=== PATIENT | female | born 1930 | race Caucasian/White ===

== ENCOUNTER 2016-04-04 13:58 | Emergency (ER) | payer OTHER ==
[~2016-04-04] VITALS: Ht 162.6 cm; Wt 40.0 kg
[~2016-04-04 13:58] MED LIST: ADVAIR 500/501 DISK IH; ALBUT IH; ALTACE10 MG PO; AMLODIPINE BESY10 MG PO; ARANESP100 MCG/0. IV/SC; ASCORBIC ACID500 M3 PO; ASCORBIC ACID500 MG PO; ASPIR-LOW81 MG PO; ASPIRIN E.C.81 M1 PO; ATIVAN0.5 MG PO; ATORVASTATIN CA20 MG PO; ATROVENT H200 INHALA IH; AZATHIOPRINE50 MG PO; Antivert PO; Aranesp; Ascorbic Acid,Ester- PO; Aspirin E.C. PO; Atrovent HFA Inhaler IH; BACTRIM,SEPT1 TABLE1 PO; BACTROBAN NASAL1 G1 BOTH NARES; BYSTOLIC5 MG PO; Bactrim,Septra Singl PO; CALCITRIOL0.25 MCG PO; CALCIUM 600 +1 EAC5 PO; CARDIZEM CD,CA120 MG PO; CARDIZEM120 MG PO; CEFUROXIME500 MG PO; COLACE100 MG PO; COUMADIN2.5 MG PO; COUMADIN3 MG PO; CYCLOPHOSPHAMID50 MG PO; CYTOXAN PO; CYTOXAN25 MG PO; Cardizem CD,Cartia X PO; Ceftin PO; Cepacol Lozenge, Sor MM; Combivent IH; Coumadin Protocol PO; DELTASONE20 MG; DELTASONE20 MG PO; DIGOXIN125 MCG PO; DRISDOL50000 UNIT PO; DULCOLAX5 MG PO; DUONEB3 ML IH; Dextrose 10% in Wate IV; Dextrose 50% in Wate IV; ELIQUIS2.5 MG PO; FLONASE16 GM BOTH NARES; Flonase BOTH NARES; GENTEAL MODERAT25 ML BOTH EYES; GLIPIZIDE5 MG PO; GLUCAGEN IM/SC; GLUCAGEN1 MG IM/SC; GLUCOTROL XL10 MG PO; GLUCOTROL XL5 MG PO; Glucophage XR,Fortam PO; Glucotrol PO; HYOSCYAMINE0.125 MG PO; IMDUR30 MG PO; IMURAN50 MG PO; Imuran PO; Januvia PO; K-DUR20 MEQ PO; KEFLEX500 MG PO; KLOR-CON20 MEQ PO; LANTUS 10100 UNITS/ SC; LANTUS100 UNIT/1 SQ; LASIX20 MG PO; LASIX40 MG PO; LEVAQUIN250 MG PO; LEVAQUIN750 MG PO; LIPITOR20 MG PO; LOPRESSOR50 MG PO; LOVENOX30 MG/0.3 SC; MAG DELAY64 M1 PO; MECLIZINE HCL25 MG PO; METOPROLOL TART50 MG PO; MULTI-DAY VITA1 EACH PO; NEXIUM40 MG PO; NORVASC10 MG PO; NOVOLOG PE100 UNITS/ SC; NOVOLOG100 UNIT/2 SQ; NovoLOG Pen 3 ml SC; OS-CAL 500+D T1 EAC1 PO; OSCAL, OYSTER500 MG PO; Oscal 500 w/Vitamin PO; POTASSIUM CHLO10 ME3 PO; PRAVACHOL80 MG PO; PREDNISONE10 MG PO; PRILOSEC20 MG PO; PROCRIT; PROVENTIL,200 INHALA IH; Protonix PO; Proventil,Ventolin H IH; REFRESH TEARS15 ML BOTH EYES; RESTASIS 01 DROP/0.4 BOTH EYES; Rocaltrol PO; SIMVASTATIN40 M1 PO; SPIRIVA1 INHALATI IH; SYMBICORT60 INHALA1 IH; SYMBICORT60 INHALAT IH; Silvadene,SSD,Therma TP; Symbicort 160-4.5 mc IH; THERAGRAN1 TABLET PO; TOPROL XL50 MG PO; TUDORZA PRESS400 MCG IH; TYLENOL REGULA325 MG PO; Toprol XL PO; Tudorza Pressair IH; Tylenol Regular Stre PO; VENTOLIN HFA18 GM IH; VITAMIN C500 M1 PO; Vicodin,Lortab 5/500 PO; WARFARIN PO; WARFARIN SODIU2.5 MG PO; XOPENEX HF200 INHALA IH; XOPENEX1.25 MG/0. IH; XYLOCAINE 5%35.44 GM TP; Xopenex IH; ZOCOR80 MG PO; ZOFRAN4 MG PO; Zocor PO; Zofran IV; [UNRECOGNIZED DRUG - OTHER] EPID; predniSONE PO
[2016-04-04 15:40] LABS: HEMATOCRIT 34.2 % (36.0-46.0); MCHC 32.7 G/DL (30.0-36.0); MCV 88.6 FL (83-99); MEAN PLAT.VOLUME 11.1 uM^3 (9.5-12.4); PLATELET COUNT 159 K/uL (156-360); RBC DIS.WIDTH-SD 50.5 % (39-53); RED BLOOD COUNT 3.86 M/uL (3.80-5.20); WHITE BLOOD COUNT 7.4 K/uL (4.1-10.2)
[2016-04-04 15:50] LABS: CHLORIDE 99 mEq/L (99-109); POTASSIUM 4.6 mEq/L (3.7-5.4); SODIUM 137 mEq/L (136-147)
[2016-04-04 15:51] LABS: GLUCOSE 206 mg/dL (70-99)
[2016-04-04 15:53] LABS: ANION GAP 11 MEQ/L (2-14)
[2016-04-04 15:55] LABS: GFR ESTIMATE (CALCULATED) 38 mL/min/
[2016-04-04 15:56] LABS: UREA NITROGEN (BUN) 19 mg/dL (9-23)
[2016-04-04] MEDS ORDERED: TYLENOL WITH C1 EACH PO (17:44)
[2016-04-04 18:21] VITALS: BP 128/87
== END 2016-04-04 18:22 | disposition home or self-care (01) ==
LOC: EME 13:58
PROVIDERS: Nurse Practitioner Family
DX: S30.0XXA Contusion of lower back and pelvis, initial encounter (principal); I25.2 Old myocardial infarction; W18.30XA Fall on same level, unspecified, initial encounter; Z79.01 Long term (current) use of anticoagulants
CPT/HCPCS: 70450; 72131; 72192; 80048; 81003; 85027; 99281; 99284

== ENCOUNTER 2016-04-05 23:21 | Observation (INO) | payer OTHER ==
[~2016-04-05] VITALS: Ht 162.6 cm; Wt 42.3 kg
[~2016-04-05 23:21] MED LIST changes: +TYLENOL WITH C1 EACH PO
[2016-04-06 00:02] LABS: HEMATOCRIT 33.2 % (36.0-46.0); MCH 29.6 PG (29.0-34.0); MCHC 33.1 G/DL (30.0-36.0); MCV 89.5 FL (83-99); MEAN PLAT.VOLUME 10.8 uM^3 (9.5-12.4); PLATELET COUNT 165 K/uL (156-360); RBC DIS.WIDTH-CV 16.3 % (11.8-14.6); RBC DIS.WIDTH-SD 51.5 % (39-53); RED BLOOD COUNT 3.71 M/uL (3.80-5.20); WHITE BLOOD COUNT 5.4 K/uL (4.1-10.2)
[2016-04-06 00:20] LABS: ADD MIUA? YES; BILIRUBIN NEGATIVE; BLOOD SMALL; COLOR YELLOW ((YELLOW)); GLUCOSE (STRIP) NEGATIVE; KETONES 5; LEUKOCYTES MODERATE; NITRITE NEGATIVE; PROTEIN (STRIP) NEGATIVE; SPECIFIC GRAVITY 1.019 (1.000-1.030); UROBILINOGEN 0.2 MG/DL (0.2-1.0)
[2016-04-06 00:21] LABS: CHLORIDE 100 mEq/L (99-109); POTASSIUM 4.8 mEq/L (3.7-5.4); SODIUM 140 mEq/L (136-147)
[2016-04-06 00:23] LABS: GLUCOSE 156 mg/dL (70-99); TROP-I INTERPRETATION NEGATIVE; TROPONIN-I 0.01 ng/mL (0.0-0.30)
[2016-04-06 00:24] LABS: ANION GAP 13 MEQ/L (2-14)
[2016-04-06 00:26] LABS: GFR ESTIMATE (CALCULATED) 30 mL/min/
[2016-04-06 00:28] LABS: UREA NITROGEN (BUN) 29 mg/dL (9-23)
[2016-04-06 00:30] LABS: BACTERIA NONE SEEN /HPF; EPITHELIAL CELLS RARE /HPF; HYALINE CASTS 0-5 /LPF; MUCUS TRACE /LPF; RED BLOOD CELLS 0-5 /HPF (0-5); UCUL ADDED? NO; WHITE BLOOD CELLS 0-5 /HPF (0-5)
[2016-04-06 04:10] VITALS: BP 151/73
[2016-04-06 08:00] VITALS: BP 184/72
[2016-04-06 13:33] VITALS: BP 149/67
[2016-04-06] MEDS ORDERED: CEFDINIR300 MG PO (14:11)
[2016-04-06 15:01] LABS: ANION GAP 8 MEQ/L (2-14); CHLORIDE 99 MEQ/L (99-109); POTASSIUM 5.3 MEQ/L (3.7-5.4); SAMPLE HEMOLYSIS CHECK 0; SAMPLE ICTERIC CHECK 0; SAMPLE LIPEMIA CHECK 0; SODIUM 136 MEQ/L (136-147)
[2016-04-06 15:07] LABS: GFR ESTIMATE (CALCULATED) 45 mL/min/; GLUCOSE 193 mg/dL (70-99); UREA NITROGEN (BUN) 23 mg/dL (9-23)
== END 2016-04-06 16:42 | disposition home or self-care (01) ==
LOC: EME → EDBD 23:21 → EME 23:21 → EDOF 04-06 02:22 → 5WEST 04-06 03:44
PROVIDERS: Emergency Medicine; Hospitalist
DX: S22.088A Other fracture of T11-T12 vertebra, initial encounter for closed fracture (principal); W19.XXXA Unspecified fall, initial encounter; N17.9 Acute kidney failure, unspecified; G92 Toxic encephalopathy; T40.4X5A Adverse effect of other synthetic narcotics, initial encounter; N39.0 Urinary tract infection, site not specified; E11.9 Type 2 diabetes mellitus without complications; J44.9 Chronic obstructive pulmonary disease, unspecified; I10 Essential (primary) hypertension; I25.2 Old myocardial infarction; I25.10 Atherosclerotic heart disease of native coronary artery without angina pectoris; I48.0 Paroxysmal atrial fibrillation; F41.9 Anxiety disorder, unspecified; Z95.5 Presence of coronary angioplasty implant and graft
CPT/HCPCS: 72128; 80048; 81003; 84484; 85027; 87077; 87086; 87186; 93005; 94640 76; 94799; 99202; 99281; 99284; G0378; G8978 GP CJ; G8979 GP CI; G8987 GO CM; G8988 CI; J0696; J2405; J3010; J7030; J7050

== ENCOUNTER 2016-05-07 19:51 | Inpatient (IN) | payer OTHER ==
[~2016-05-07] VITALS: Ht 160 cm; Wt 35.3 kg
[~2016-05-07 19:51] MED LIST changes: +CEFDINIR300 MG PO
[2016-05-07 21:01] LABS: ADD MIUA? YES; BILIRUBIN NEGATIVE; BLOOD SMALL; COLOR YELLOW ((YELLOW)); GLUCOSE (STRIP) >=500; KETONES NEGATIVE; LEUKOCYTES LARGE; NITRITE NEGATIVE; PROTEIN (STRIP) NEGATIVE; SPECIFIC GRAVITY 1.016 (1.000-1.030); UROBILINOGEN 0.2 MG/DL (0.2-1.0)
[2016-05-07 21:15] LABS: CHLORIDE 97 mEq/L (99-109); POTASSIUM 5.1 mEq/L (3.7-5.4); SODIUM 129 mEq/L (136-147)
[2016-05-07 21:18] LABS: ANION GAP 9 MEQ/L (2-14)
[2016-05-07 21:21] LABS: GFR ESTIMATE (CALCULATED) 32 mL/min/
[2016-05-07 21:22] LABS: UREA NITROGEN (BUN) 39 mg/dL (9-23)
[2016-05-07 21:28] LABS: GLUCOSE 403 mg/dL (70-99)
[2016-05-07 21:33] LABS: BACTERIA RARE /HPF; EPITHELIAL CELLS RARE /HPF; MUCUS TRACE /LPF; RED BLOOD CELLS 0-5 /HPF (0-5); UCUL ADDED? NO; WHITE BLOOD CELLS 15-20 /HPF (0-5)
[2016-05-07 21:42] LABS: HEMATOCRIT 32.2 % (36.0-46.0); MCHC 32.9 G/DL (30.0-36.0); MCV 91.2 FL (83-99); MEAN PLAT.VOLUME 11.4 uM^3 (9.5-12.4); PLATELET COUNT 164 K/uL (156-360); RBC DIS.WIDTH-CV 17.2 % (11.8-14.6); RBC DIS.WIDTH-SD 56.8 % (39-53); RED BLOOD COUNT 3.53 M/uL (3.80-5.20)
[2016-05-07] MEDS ORDERED: DOXYCYCLINE HY100 MG PO (23:33)
[2016-05-07] MEDS ORDERED: IMDUR30 MG PO (23:34)
[2016-05-08 00:54] LABS: POINT-OF-CARE METER ID UU13113702
[2016-05-08 01:25] VITALS: BP 153/70
[2016-05-08 02:43] LABS: TOTAL BILIRUBIN 0.4 mg/dL (0.0-1.0)
[2016-05-08 02:44] LABS: ALKALINE PHOSPHATASE 157 IU/L (3-129)
[2016-05-08 02:47] LABS: DIRECT BILIRUBIN 0.2 mg/dL (0.0-0.3)
[2016-05-08 06:27] LABS: ALKALINE PHOSPHATASE 131 IU/L (3-129); ANION GAP 6 MEQ/L (2-14); CHLORIDE 104 MEQ/L (99-109); MAGNESIUM 1.4 mg/dl (1.3-2.7); POTASSIUM 4.1 MEQ/L (3.7-5.4); SAMPLE HEMOLYSIS CHECK 0; SAMPLE ICTERIC CHECK 0; SAMPLE LIPEMIA CHECK 0; TOTAL BILIRUBIN 0.5 MG/DL (0.0-1.0); UREA NITROGEN (BUN) 27 mg/dL (9-23)
[2016-05-08 06:29] LABS: GFR ESTIMATE (CALCULATED) 50 mL/min/; GLUCOSE 193 mg/dL (70-99); SODIUM 137 MEQ/L (136-147)
[2016-05-08 08:01] VITALS: BP 133/59
[2016-05-08 08:21] LABS: Estimated Average Glucose 212 mg/dL (70-123)
[2016-05-08 11:29] LABS: POINT-OF-CARE METER ID UU13113725
[2016-05-08 11:39] VITALS: BP 120/64
[2016-05-08 16:07] LABS: POINT-OF-CARE METER ID UU13113725
[2016-05-08 16:35] VITALS: BP 121/57
[2016-05-08 21:40] LABS: POINT-OF-CARE METER ID UU13113725
[2016-05-08 23:47] VITALS: BP 149/84
[2016-05-09 06:08] LABS: POINT-OF-CARE METER ID UU13113725
[2016-05-09 06:30] LABS: EOSINOPHIL (%) 0.2 % (0-5); HEMATOCRIT 30.4 % (36.0-46.0); IMMATURE GRANULOCYTE (%) 2.1 % (0.0-0.7); IMMATURE GRANULOCYTE COUNT 0.1 K/uL; INSTRUMENT ABS NEUTROPHIL CT 3.6 K/uL; LYMPHOCYTE COUNT 0.5 K/uL (1.0-2.8); MCH 29.7 PG (29.0-34.0); MCHC 32.6 G/DL (30.0-36.0); MCV 91.3 FL (83-99); MEAN PLAT.VOLUME 11.7 uM^3 (9.5-12.4); MONOCYTE (%) 11.9 % (3-12); MONOCYTE COUNT 0.6 K/uL (0-0.8); NEUTROPHIL (%) 75.8 % (45-76); NEUTROPHIL COUNT 3.6 K/uL (1.8-6.4); PLATELET COUNT 120 K/uL (156-360); RBC DIS.WIDTH-CV 17.2 % (11.8-14.6); RBC DIS.WIDTH-SD 56.8 % (39-53); RED BLOOD COUNT 3.33 M/uL (3.80-5.20); WHITE BLOOD COUNT 4.7 K/uL (4.1-10.2)
[2016-05-09 06:54] VITALS: BP 122/57
[2016-05-09 10:19] LABS: HEMATOCRIT 32.8 % (36.0-46.0); MCH 30.1 PG (29.0-34.0); MCHC 32.9 G/DL (30.0-36.0); MCV 91.4 FL (83-99); MEAN PLAT.VOLUME 11.5 uM^3 (9.5-12.4); PLATELET COUNT 119 K/uL (156-360); RBC DIS.WIDTH-CV 17.2 % (11.8-14.6); RBC DIS.WIDTH-SD 57.1 % (39-53); RED BLOOD COUNT 3.59 M/uL (3.80-5.20); WHITE BLOOD COUNT 5.7 K/uL (4.1-10.2)
[2016-05-09 10:36] LABS: ANION GAP 6 MEQ/L (2-14); CHLORIDE 107 MEQ/L (99-109); GFR ESTIMATE (CALCULATED) > 59 mL/min/; SAMPLE HEMOLYSIS CHECK 0; SAMPLE ICTERIC CHECK 0; SAMPLE LIPEMIA CHECK 0; SODIUM 140 MEQ/L (136-147); UREA NITROGEN (BUN) 17 mg/dL (9-23)
[2016-05-09 10:38] LABS: GLUCOSE 102 mg/dL (70-99)
[2016-05-09 15:47] VITALS: BP 135/79
[2016-05-09 20:41] LABS: POINT-OF-CARE METER ID UU13113725
[2016-05-09 22:47] VITALS: BP 142/82
[2016-05-10 05:47] LABS: POINT-OF-CARE METER ID UU13113725
[2016-05-10 08:00] VITALS: BP 124/63
[2016-05-10 11:00] VITALS: BP 117/69
[2016-05-10] MEDS ORDERED: BACTRIM,SEPT1 TABLE1 PO (11:04)
[2016-05-10] MEDS ORDERED: JANUVIA25 MG PO (11:05)
[2016-05-10] MEDS ORDERED: LIDOCAINE700 MG TD (11:06)
[2016-05-10] MEDS ORDERED: NOVOLOG PE100 UNITS/ SC (11:16)
[2016-05-10 11:37] LABS: POINT-OF-CARE METER ID UU13113725
[2016-05-10 16:00] VITALS: BP 120/71
== END 2016-05-10 18:35 | DRG 543 ==
LOC: EME → EDBD 19:51 → EME 19:51 → 5EAST 23:49 → EDOF 23:49 → 5EAST 05-08 01:29
PROVIDERS: Hospitalist; Internal Medicine; Physician Assistant Medical
DX: M80.88XA Other osteoporosis with current pathological fracture, vertebra(e), initial encounter for fracture (principal); N17.9 Acute kidney failure, unspecified; E46 Unspecified protein-calorie malnutrition; R64 Cachexia; Z68.1 Body mass index [BMI] 19.9 or less, adult; E87.1 Hypo-osmolality and hyponatremia; F05 Delirium due to known physiological condition; E11.65 Type 2 diabetes mellitus with hyperglycemia; L97.521 Non-pressure chronic ulcer of other part of left foot limited to breakdown of skin; I48.0 Paroxysmal atrial fibrillation; E11.22 Type 2 diabetes mellitus with diabetic chronic kidney disease; B95.62 Methicillin resistant Staphylococcus aureus infection as the cause of diseases classified elsewhere; E78.5 Hyperlipidemia, unspecified; R32 Unspecified urinary incontinence; J44.9 Chronic obstructive pulmonary disease, unspecified; I12.9 Hypertensive chronic kidney disease with stage 1 through stage 4 chronic kidney disease, or unspecified chronic kidney disease; N18.3 Chronic kidney disease, stage 3 (moderate); I87.2 Venous insufficiency (chronic) (peripheral); I25.10 Atherosclerotic heart disease of native coronary artery without angina pectoris; I73.9 Peripheral vascular disease, unspecified; Z79.01 Long term (current) use of anticoagulants; Z60.2 Problems related to living alone; Z99.81 Dependence on supplemental oxygen; Z98.61 Coronary angioplasty status; Z82.49 Family history of ischemic heart disease and other diseases of the circulatory system; Z82.5 Family history of asthma and other chronic lower respiratory diseases; Z83.3 Family history of diabetes mellitus; Z80.7 Family history of other malignant neoplasms of lymphoid, hematopoietic and related tissues; Z88.0 Allergy status to penicillin
CPT/HCPCS: 70450; 71020; 72110; 80048; 80053; 80076; 81003; 82948; 83036; 83605; 83735; 85025; 85027; 87040; 87493; 93005; 94640; 94640 76; 99202; 99281; 99285; J1815; J3370; J7030; J7050; J7500

== ENCOUNTER 2016-06-03 05:11 | Inpatient (IN) | payer OTHER ==
[~2016-06-03] VITALS: Ht 157.5 cm; Wt 49.6 kg
[~2016-06-03 05:11] MED LIST changes: +DOXYCYCLINE HY100 MG PO; +JANUVIA25 MG PO; +LIDOCAINE700 MG TD
[2016-06-03 05:57] LABS: INTER. NORMALIZED RATIO 1.3; MCHC 33.5 G/DL (30.0-36.0); MCV 92.3 FL (83-99); PLATELET COUNT 156 K/uL (156-360); PROTHROMBIN TIME 13.4 (9.2-11.2); PTT 31.3 (25-32); RBC DIS.WIDTH-CV 17.6 % (11.8-14.6); RED BLOOD COUNT 3.36 M/uL (3.80-5.20); WHITE BLOOD COUNT 15.4 K/uL (4.1-10.2)
[2016-06-03 05:59] LABS: CHLORIDE 95 mEq/L (99-109); POTASSIUM 4.6 mEq/L (3.7-5.4); SODIUM 129 mEq/L (136-147)
[2016-06-03 06:02] LABS: GLUCOSE 240 mg/dL (70-99)
[2016-06-03 06:03] LABS: ANION GAP 14 MEQ/L (2-14)
[2016-06-03 06:04] LABS: TOTAL BILIRUBIN 1.3 mg/dL (0.0-1.0)
[2016-06-03 06:05] LABS: BASE EXCESS -5.3 mEq/L (-3 to +3); BICARBONATE 21.9 mEq/L (22-26); CARBOXY HGB 1.3 % (0-5); COMMENTS - BLOOD GASES A+C+; DEVICE 980; FI02 100 %; MODE AC; PCO2 50 mm Hg (35-45); PO2 342 mm Hg (80-100); SITE LR; pH 7.25 (7.35-7.45)
[2016-06-03 06:05] LABS: ALKALINE PHOSPHATASE 114 IU/L (3-129); GFR ESTIMATE (CALCULATED) 45 mL/min/
[2016-06-03 06:06] LABS: UREA NITROGEN (BUN) 19 mg/dL (9-23)
[2016-06-03 06:06] LABS: MECHANICAL RATE 12 resp/min; PEEP 8 CM/H20; TIDAL VOLUME 400 ML; TOTAL RESP RATE 16 resp/min
[2016-06-03 06:08] LABS: TROP-I INTERPRETATION INDETERMINATE; TROPONIN-I 0.58 ng/mL (0.0-0.30)
[2016-06-03 06:09] LABS: LIPASE 12 U/L (1.0-51.0)
[2016-06-03 06:26] LABS: ADD MIUA? NO; BILIRUBIN NEGATIVE; BLOOD NEGATIVE; COLOR YELLOW ((YELLOW)); GLUCOSE (STRIP) 50; KETONES NEGATIVE; LEUKOCYTES NEGATIVE; NITRITE NEGATIVE; PROTEIN (STRIP) NEGATIVE; UCUL ADDED? NO; UROBILINOGEN 0.2 MG/DL (0.2-1.0)
[2016-06-03] MEDS ORDERED: TYLENOL REGULA325 MG PO (07:27)
[2016-06-03] MEDS ORDERED: TAMIFLU75 MG PO (07:28)
[2016-06-03] MEDS ORDERED: MAALOX ADVANCE355 ML PO (07:29)
[2016-06-03] MEDS ORDERED: METOPROLOL TART50 MG PO (07:30)
[2016-06-03] MEDS ORDERED: SPIRIVA1 INHALATI IH (07:33)
[2016-06-03] MEDS ORDERED: TRADJENTA5 MG PO (07:33)
[2016-06-03] MEDS ORDERED: LIDODERM 5% P1 PATCH TD (07:33)
[2016-06-03] MEDS ORDERED: OMEPRAZOLE20 MG PO (07:34)
[2016-06-03] MEDS ORDERED: IRON325 M1 PO (07:35)
[2016-06-03] MEDS ORDERED: REFRESH EYE DR1 EACH BOTH EYES (07:35)
[2016-06-03] MEDS ORDERED: TRAMADOL HCL50 MG PO (07:35)
[2016-06-03] MEDS ORDERED: SENNA8.6 MG PO (07:36)
[2016-06-03] MEDS ORDERED: MAGIC CUP PO (07:36)
[2016-06-03] MEDS ORDERED: LASIX40 MG PO (07:37)
[2016-06-03] MEDS ORDERED: LASIX20 MG PO (07:37)
[2016-06-03 09:45] VITALS: BP 119/62
[2016-06-03 11:19] LABS: MAGNESIUM 1.3 mg/dL (1.3-2.7)
[2016-06-03 11:26] LABS: URIC ACID 6.7 mg/dL (3.1-9.2)
[2016-06-03 11:28] LABS: METH RESISTANT S AUREUS PCR NEGATIVE (NEGATIVE)
[2016-06-03 11:50] LABS: CARBOXY HGB 1.5 % (0-5); COMMENTS - BLOOD GASES NAC+; METHEMOGLOBIN 1.8 % (0-1.5); PCO2 38 mm Hg (35-45); PO2 221 mm Hg (80-100); SITE ALINE; pH 7.37 (7.35-7.45)
[2016-06-03 11:51] LABS: DEVICE PB 980 VENT; FI02 60 %; MECHANICAL RATE 16 resp/min; MODE AC; PEEP 8 CM/H20; TIDAL VOLUME 400 ML; TOTAL RESP RATE 16 resp/min
[2016-06-03 11:52] LABS: PROBE CHECK PASS; SPECIMEN PROCESSING CONTROL PASS
[2016-06-03 12:41] LABS: UR CREATININE CONCENTRATION 34.8 MG/DL
[2016-06-03 12:49] LABS: CREATINE KINASE 265 IU/L (1-294); TOTAL CK 265 IU/L (1-294)
[2016-06-03 13:00] LABS: TROP-I INTERPRETATION POSITIVE; TROPONIN-I 9.53 ng/mL (0.0-0.30)
[2016-06-03 13:13] LABS: CK-MB 40.8 ng/mL (0.0-4.9)
[2016-06-03 17:54] LABS: POINT-OF-CARE METER ID UU13113731
[2016-06-03 18:25] LABS: TROP-I INTERPRETATION POSITIVE; TROPONIN-I 7.49 ng/mL (0.0-0.30)
[2016-06-03 18:46] LABS: CREATINE KINASE 225 IU/L (1-294); TOTAL CK 225 IU/L (1-294)
[2016-06-03 20:00] VITALS: BP 119/75
[2016-06-03 21:00] VITALS: BP 119/75
[2016-06-04] VITALS (7 sets, daily range): BP systolic 92–117; BP diastolic 49–69
[2016-06-04 00:04] LABS: POINT-OF-CARE METER ID UU13113731
[2016-06-04 00:42] LABS: CREATINE KINASE 239 IU/L (1-294); TOTAL CK 239 IU/L (1-294)
[2016-06-04 00:54] LABS: TROP-I INTERPRETATION POSITIVE; TROPONIN-I 7.64 ng/mL (0.0-0.30)
[2016-06-04 01:10] LABS: CK-MB 21.9 ng/mL (0.0-4.9)
[2016-06-04 05:43] LABS: POINT-OF-CARE METER ID UU14162636
[2016-06-04 07:41] LABS: EOSINOPHIL (%) 0.1 % (0-5); IMMATURE GRANULOCYTE (%) 1.8 % (0.0-0.7); IMMATURE GRANULOCYTE COUNT 0.2 K/uL; INSTRUMENT ABS NEUTROPHIL CT 12.5 K/uL; LYMPHOCYTE COUNT 0.3 K/uL (1.0-2.8); MCH 30.8 PG (29.0-34.0); MCHC 34.1 G/DL (30.0-36.0); MCV 90.3 FL (83-99); MEAN PLAT.VOLUME 10.9 uM^3 (9.5-12.4); MONOCYTE (%) 4.7 % (3-12); MONOCYTE COUNT 0.6 K/uL (0-0.8); NEUTROPHIL COUNT 12.5 K/uL (1.8-6.4); PLATELET COUNT 146 K/uL (156-360); RBC DIS.WIDTH-CV 18.3 % (11.8-14.6); RBC DIS.WIDTH-SD 60.5 % (39-53); RED BLOOD COUNT 2.99 M/uL (3.80-5.20); WHITE BLOOD COUNT 13.7 K/uL (4.1-10.2)
[2016-06-04 08:03] LABS: ANION GAP 11 MEQ/L (2-14); CHLORIDE 99 MEQ/L (99-109); CREATINE KINASE 191 IU/L (1-294); GFR ESTIMATE (CALCULATED) 45 mL/min/; GLUCOSE 305 mg/dL (70-99); MAGNESIUM 2.4 mg/dl (1.3-2.7); SAMPLE HEMOLYSIS CHECK 0; SAMPLE ICTERIC CHECK 0; SAMPLE LIPEMIA CHECK 0; SODIUM 131 MEQ/L (136-147); TOTAL CK 191 IU/L (1-294); UREA NITROGEN (BUN) 23 mg/dL (9-23)
[2016-06-04 08:04] LABS: POTASSIUM 3.3 MEQ/L (3.7-5.4)
[2016-06-04 08:43] LABS: CK-MB 17.2 ng/mL (0.0-4.9); TROP-I INTERPRETATION POSITIVE; TROPONIN-I 12.59 ng/mL (0.0-0.30)
[2016-06-04 20:47] LABS: ANION GAP 12 MEQ/L (2-14); CHLORIDE 103 MEQ/L (99-109); GFR ESTIMATE (CALCULATED) 38 mL/min/; GLUCOSE 341 mg/dL (70-99); SAMPLE HEMOLYSIS CHECK 0; SAMPLE ICTERIC CHECK 0; SAMPLE LIPEMIA CHECK 0; SODIUM 133 MEQ/L (136-147); UREA NITROGEN (BUN) 27 mg/dL (9-23)
[2016-06-04 20:50] LABS: POTASSIUM 4.3 MEQ/L (3.7-5.4)
[2016-06-04 20:52] LABS: TROP-I INTERPRETATION POSITIVE; TROPONIN-I 9.52 ng/mL (0.0-0.30)
[2016-06-05] VITALS: BP 94/54
[2016-06-05 01:56] LABS: POINT-OF-CARE METER ID UU13113803
[2016-06-05 03:00] VITALS: BP 110/70
[2016-06-05 04:00] VITALS: BP 103/61
[2016-06-05 06:00] VITALS: BP 100/42
[2016-06-05 06:17] LABS: POINT-OF-CARE METER ID UU13113803
[2016-06-05 06:20] LABS: MCH 30.7 PG (29.0-34.0); MCHC 30.7 G/DL (30.0-36.0); NRBC (%) 0.1 /100 WBC (0-0); RBC DIS.WIDTH-CV 18.5 % (11.8-14.6); RBC DIS.WIDTH-SD 67.6 % (39-53)
[2016-06-05 06:24] LABS: WHITE BLOOD COUNT 20.5 K/uL (4.1-10.2)
[2016-06-05 06:39] LABS: POINT-OF-CARE METER ID UU13113803
[2016-06-05 07:03] LABS: TROP-I INTERPRETATION POSITIVE; TROPONIN-I 13.37 ng/mL (0.0-0.30)
[2016-06-05 07:10] LABS: ALKALINE PHOSPHATASE 159 IU/L (3-129); SAMPLE HEMOLYSIS CHECK 1; SAMPLE ICTERIC CHECK 0; SAMPLE LIPEMIA CHECK 0; TOTAL BILIRUBIN 0.7 MG/DL (0.0-1.0)
[2016-06-05 08:00] VITALS: BP 105/62
[2016-06-05 08:03] LABS: BASE EXCESS -16.9 mEq/L (-3 to +3); CARBOXY HGB 1.9 % (0-5); METHEMOGLOBIN 1.5 % (0-1.5)
[2016-06-05 08:04] LABS: ABS NEUTROPHIL COUNT 18.2; ANION GAP 14 MEQ/L (2-14); BAND NEUTROPHILS 2.6 % (0-8.0); CHLORIDE 108 MEQ/L (99-109); EOSINOPHIL ABS CT 0; GFR ESTIMATE (CALCULATED) 32 mL/min/; GLUCOSE 40 mg/dL (70-99); INSTRUMENT ABS NEUTROPHIL CT 16.7 K/uL; LYMPHOCYTES 2.6 % (15.0-45.0); MAGNESIUM 2.1 mg/dl (1.3-2.7); MEAN PLAT.VOLUME 11.2 uM^3 (9.5-12.4); METAMYELOCYTES 1.7 %; MYELOCYTES 1.8 %; PLATELET COUNT 160 K/uL (156-360); POTASSIUM 5.1 MEQ/L (3.7-5.4); SEG.NEUTROPHILS 86.1 % (46.0-76.0); SODIUM 136 MEQ/L (136-147); UREA NITROGEN (BUN) 27 mg/dL (9-23)
[2016-06-05 08:04] LABS: BICARBONATE 13.6 mEq/L (22-26); PCO2 55 mm Hg (35-45); PO2 68 mm Hg (80-100)
[2016-06-05 08:05] LABS: COMMENTS - BLOOD GASES +C; DEVICE PB980; FI02 30 %; MECHANICAL RATE 12 resp/min; MODE AC; SITE A-LINE; TIDAL VOLUME 400 ML; TOTAL RESP RATE 12 resp/min
[2016-06-05 08:06] LABS: PEEP 5 CM/H20
[2016-06-05 16:25] LABS: ANISOCYTOSIS 2+; BURR CELLS 1+; MICROCYTOSIS 1+; OVALOCYTES 1+; PLAT.SUFFICIENCY ADEQUATE; POIKILOCYTOSIS 3+; SPHEROCYTES 1+
== END 2016-06-05 02:51 | DRG 208 ==
LOC: EME → EDBD 05:11 → EME 05:11 → 4WEST 07:38 → EDOF 07:38 → 4WEST 08:52
PROVIDERS: Emergency Medicine; Internal Medicine Nephrology
DX: J96.01 Acute respiratory failure with hypoxia (principal); I21.4 Non-ST elevation (NSTEMI) myocardial infarction; R57.0 Cardiogenic shock; E87.2 Acidosis; I48.91 Unspecified atrial fibrillation; J44.0 Chronic obstructive pulmonary disease with (acute) lower respiratory infection; J18.9 Pneumonia, unspecified organism; J44.1 Chronic obstructive pulmonary disease with (acute) exacerbation; I13.0 Hypertensive heart and chronic kidney disease with heart failure and stage 1 through stage 4 chronic kidney disease, or unspecified chronic kidney disease; I50.33 Acute on chronic diastolic (congestive) heart failure; N18.9 Chronic kidney disease, unspecified; I25.10 Atherosclerotic heart disease of native coronary artery without angina pectoris; E78.4 Other hyperlipidemia; E11.65 Type 2 diabetes mellitus with hyperglycemia; E11.22 Type 2 diabetes mellitus with diabetic chronic kidney disease; Z66 Do not resuscitate; I46.9 Cardiac arrest, cause unspecified
CPT/HCPCS: 36600; 71010; 80048; 80048 91; 80053; 80162; 80202; 81003; 82550; 82550 91; 82553; 82570; 82803; 82948; 83605; 83690; 83735; 83880; 83930; 83935; 84100; 84145 90; 84156; 84300; 84484; 84550; 85025; 85027; 85610; 85730; 87040; 87070; 87205; 87641; 93005; 93306; 94002; 94003; 94640; 94640 76; 94644; 94760; 99202; 99281; 99285; C9113; J0171; J0330; J0610; J0696; J1160; J1630; J1720; J1815; J1940; J1956; J2543; J3010; J3370; J3475; J7030; J7050; J7120; J7500; P9045